=== PATIENT | male | born 1950 | race Caucasian/White ===

== ENCOUNTER 2021-08-03 12:16 | Observation (INO) | payer MEDICARE ==
[~2021-08-03] VITALS: Ht 177.8 cm; Wt 105.8 kg
[2021-08-03] MEDS ORDERED: aspirin 81mg tab.chew PO ONE (12:35)
[2021-08-03 12:50] LABS: BASOPHILS # (AUTO) 0.1 X10'3 (0-0.2); BASOPHILS % (AUTO) 0.9 % (0-1); EOSINOPHILS # (AUTO) 0.1 X10'3 (0-0.9); EOSINOPHILS % (AUTO) 1.2 % (0-6); HEMATOCRIT 42.6 % (42.0-52.0); HEMOGLOBIN 14.3 g/dl (14.0-17.9); LYMPHOCYTES % (AUTO) 17.7 % (21-51); MEAN CORPUSCULAR HEMOGLOBIN 32.8 PG (27.0-31.0); MEAN CORPUSCULAR HGB CONC 33.7 g/dL (33.0-36.5); MEAN CORPUSCULAR VOLUME 97.4 FL (78-98); MONOCYTES # (AUTO) 0.6 X10'3 (0-0.9); MONOCYTES % (AUTO) 9.7 % (2-12); NEUTROPHILS # (AUTO) 4.1 X10'3 (1.8-7.7); NEUTROPHILS % (AUTO) 70.5 % (42-75); PLATELET COUNT 150 X10'3 (140-440); RED BLOOD COUNT 4.37 X10'6 (4.70-6.10); RED CELL DISTRIBUTION WIDTH 13.7 % (11.5-14.5); WHITE BLOOD COUNT 5.9 X10'3 (4.5-11.0)
[2021-08-03 12:54] LABS: ALANINE AMINOTRANSFERASE 31 U/L (12-78); ALBUMIN 3.9 G/DL (3.4-5.0); ALBUMIN/GLOBULIN RATIO 1.1 (1.1-1.5); ALKALINE PHOSPHATASE 85 IU/L (46-116); ANION GAP 10 (8-16); ASPARTATE AMINO TRANSFERASE 29 U/L (10-37); BILIRUBIN,TOTAL 0.8 MG/DL (0.1-1.0); BLOOD UREA NITROGEN 12 MG/DL (7-18); BUN/CREATININE RATIO 11.4 (5.4-32.0); CALCIUM 8.8 MG/DL (8.5-10.1); CHLORIDE 105 MMOL/L (99-107); CREATININE 1.05 MG/DL (0.60-1.10); GLUCOSE 98 MG/DL (70-104); POTASSIUM 4.2 MMOL/L (3.5-5.1); SODIUM 142 MMOL/L (135-145); TOTAL CARBON DIOXIDE 27.5 MMOL/L (24-32); TOTAL PROTEIN 7.3 G/DL (6.4-8.2); eGFR 70 ML/MIN
[2021-08-03 13:42] LABS: D-DIMER 0.28 MG/L FEU (0-0.50)
[2021-08-03] MEDS ORDERED: nitroGLYCERIN 0.4mg SUBLingual tab SL PRN ×2 (15:00)
[2021-08-03] MEDS ORDERED: regadenoson 0.4mg/5ml syringe IV PRN (15:00)
[2021-08-03] MEDS ORDERED: mag hydrox/Alum hydrox/simeth 30ml oral suspension PO PRN (15:00)
[2021-08-03] MEDS ORDERED: ondansetron/PF 4mg/2ml inj IV PRN (15:00)
[2021-08-03] MEDS ORDERED: acetaminophen 325mg tablet PO PRN (15:00)
[2021-08-03] MEDS ORDERED: metoprolol tartrate 1mg/ml inj IV PRN (15:00)
[2021-08-03] MEDS ORDERED: aminophylline 250mg/10ml inj. IV PRN (15:00)
[2021-08-03] MEDS ORDERED: magnesium hydroxide 30ml (MOM) UD suspension PO PRN (15:00)
[2021-08-03] MEDS ORDERED: ALLO300T10 PO (15:03)
[2021-08-03] MEDS ORDERED: ROSU40TA22 PO (15:03)
--- NOTE | 2021-08-03 19:04 | NUR ---
Patient in room ED 6. I have received report from ELMO CUMMINGS and had the opportunity to ask questions and assume patient care.
--- NOTE | 2021-08-03 19:34 | NUR ---
Patient in the room resting and states no norco and morphin
[2021-08-03 19:37] VITALS: BP 156/75
[2021-08-03] MEDS: docusate sod 100mg capsule PO SCH (19:49)
[2021-08-03] MEDS: acetaminophen 325mg tablet PO PRN (19:50)
[2021-08-03 22:53] VITALS: BP 143/72
[2021-08-04] VITALS (9 sets, daily range): BP systolic 133–161; BP diastolic 55–81
[2021-08-04 06:11] LABS: ALBUMIN 3.8 G/DL (3.4-5.0); ANION GAP 6 (8-16); BLOOD UREA NITROGEN 12 MG/DL (7-18); BUN/CREATININE RATIO 11.7 (5.4-32.0); CALCIUM 8.9 MG/DL (8.5-10.1); CHLORIDE 108 MMOL/L (99-107); CHOL/HDL RATIO 2.4 (0.00-4.99); CHOLESTEROL 142 MG/DL (0-200); CREATININE 1.03 MG/DL (0.60-1.10); GLUCOSE 95 MG/DL (70-104); HDL CHOLESTEROL 58 MG/DL (35-60); LDL CHOLESTEROL 58 MG/DL (50-100); POTASSIUM 4.3 MMOL/L (3.5-5.1); SODIUM 142 MMOL/L (135-145); TOTAL CARBON DIOXIDE 28.5 MMOL/L (24-32); TRIGLYCERIDES 213 MG/DL (20-135); eGFR 71 ML/MIN
[2021-08-04 06:22] LABS: BASOPHILS % (AUTO) 0.9 % (0-1); EOSINOPHILS # (AUTO) 0.2 X10'3 (0-0.9); EOSINOPHILS % (AUTO) 3.3 % (0-6); HEMATOCRIT 42.4 % (42.0-52.0); HEMOGLOBIN 14.3 g/dl (14.0-17.9); LYMPHOCYTES # (AUTO) 1.6 X10'3 (1.1-4.8); LYMPHOCYTES % (AUTO) 33.9 % (21-51); MEAN CORPUSCULAR HEMOGLOBIN 33.5 PG (27.0-31.0); MEAN CORPUSCULAR HGB CONC 33.8 g/dL (33.0-36.5); MEAN PLATELET VOLUME 9.3 FL (7.4-10.4); MONOCYTES # (AUTO) 0.6 X10'3 (0-0.9); MONOCYTES % (AUTO) 11.8 % (2-12); NEUTROPHILS # (AUTO) 2.4 X10'3 (1.8-7.7); NEUTROPHILS % (AUTO) 50.1 % (42-75); PLATELET COUNT 136 X10'3 (140-440); RED BLOOD COUNT 4.28 X10'6 (4.70-6.10); RED CELL DISTRIBUTION WIDTH 13.9 % (11.5-14.5); WHITE BLOOD COUNT 4.8 X10'3 (4.5-11.0)
--- NOTE | 2021-08-04 06:35 | NUR ---
Problems reprioritized. Patient report given, questions answered & plan of care reviewed with JOSÉ MIGUEL CUMMINGS.
--- NOTE | 2021-08-04 07:41 | NUR ---
Patient in room PCU 3012. I have received report from Chula CUMMINGS and had the opportunity to ask questions and assume patient care.
[2021-08-04] MEDS ORDERED: atorvastatin 20mg tablet PO SCH (08:00)
[2021-08-04] MEDS ORDERED: allopurinol 300 MG tablet PO SCH (08:00)
[2021-08-04] MEDS: docusate sod 100mg capsule PO SCH (08:00)
--- NOTE | 2021-08-04 09:46 | NUR ---
Returns from stress test.
[2021-08-04] MEDS: acetaminophen 325mg tablet PO PRN (10:00)
--- NOTE | 2021-08-04 11:17 | NUR ---
Family Needs Information in order to consent to the CT
--- NOTE | 2021-08-04 11:19 | NUR ---
Message to Dr. Lopez PAGER ID: [phone] MESSAGE: Please come to speak with the family at the bedside. Pt. needs information about WHY CT ordered/ needed . There may be a financial concern. Thank You Carlyn Abraham RN [phone]
[2021-08-04] MEDS ORDERED: iohexol 350MG/ML 100ml bottle IV ONE (12:30)
--- NOTE | 2021-08-04 14:00 | NUR ---
Discharge Home to care of self and family. Information provided for follow up reference. Stable and withoout chest pain.
== END 2021-08-04 15:20 | disposition home or self-care (01) ==
LOC: ER 12:18 → ED HOLD 15:01 → INTOOBSV 15:01 → PCU 3S 19:15
PROVIDERS: ADMIT Internal Medicine; ATTEND Internal Medicine
DX: R07.89 Other chest pain (principal); R06.02 Shortness of breath; M54.9 Dorsalgia, unspecified; I25.119 Atherosclerotic heart disease of native coronary artery with unspecified angina pectoris; E78.5 Hyperlipidemia, unspecified; M10.9 Gout, unspecified; E78.00 Pure hypercholesterolemia, unspecified; Z79.899 Other long term (current) drug therapy; Z95.5 Presence of coronary angioplasty implant and graft
CPT/HCPCS: 36415; 71045; 71275; 78452; 80048; 80053; 80061; 83880; 84484; 85025; 85379; 87081; 93005; 93017; 99285; A9500; G0378; J2785; Q9967

== ENCOUNTER 2023-07-20 08:03 | Day surgery (SDC) | payer MEDICARE ==
[~2023-07-20] VITALS: Ht 177.8 cm; Wt 102.6 kg
[2023-07-20] VITALS (24 sets, daily range): BP systolic 98–134; BP diastolic 59–99; PULSE 64–112; RESP 11–23; TEMP 98.2; O2SAT 86–98
[~2023-07-20 08:03] MED LIST: ALLO300T10 PO; ROSU40TA22 PO
[2023-07-20] MEDS ORDERED: LOP12.5T PO (08:41)
[2023-07-20] MEDS ORDERED: PROP150T2 PO (08:41)
[2023-07-20] MEDS ORDERED: WARF1TAB83 PO (08:41)
[2023-07-20] MEDS ORDERED: WARF3TAB56 PO (08:41)
[2023-07-20 09:18] LABS: BASOPHILS % (AUTO) 0.8 % (0-1); EOSINOPHILS # (AUTO) 0.1 X10'3 (0-0.9); EOSINOPHILS % (AUTO) 2.3 % (0-6); HEMATOCRIT 41.9 % (42.0-52.0); LYMPHOCYTES % (AUTO) 22.3 % (21-51); MEAN CORPUSCULAR HEMOGLOBIN 34.1 PG (27.0-31.0); MEAN CORPUSCULAR HGB CONC 33.5 g/dL (33.0-36.5); MEAN CORPUSCULAR VOLUME 101.8 FL (78-98); MEAN PLATELET VOLUME 9.3 FL (7.4-10.4); MONOCYTES # (AUTO) 0.5 X10'3 (0-0.9); MONOCYTES % (AUTO) 11.6 % (2-12); NEUTROPHILS # (AUTO) 2.9 X10'3 (1.8-7.7); PLATELET COUNT 116 X10'3 (140-440); RED BLOOD COUNT 4.11 X10'6 (4.70-6.10); RED CELL DISTRIBUTION WIDTH 14.2 % (11.5-14.5); WHITE BLOOD COUNT 4.7 X10'3 (4.5-11.0)
[2023-07-20 09:31] LABS: INR 1.6 INR; PROTHROMBIN TIME 17.1 SECONDS (9.0-12.0)
[2023-07-20] MEDS: normal saline 1000ml 1,000 ML IV SCH (10:14)
[2023-07-20] MEDS: MIDAZolam 1mg/ml 10ml vial IV ONE (10:14)
[2023-07-20] MEDS: fentaNYL/PF 50MCG/1 ML 2ML syringe IV ONE (10:14)
[2023-07-20 10:56] LABS: ANION GAP 7 (8-16); BLOOD UREA NITROGEN 16 MG/DL (7-18); BUN/CREATININE RATIO 13.1 (10.0-20.0); CALCIUM 9.1 MG/DL (8.5-10.1); CHLORIDE 106 MMOL/L (99-107); CREATININE 1.22 MG/DL (0.60-1.10); GLUCOSE 90 MG/DL (70-104); MAGNESIUM 2.4 MG/DL (1.5-2.4); POTASSIUM 4.5 MMOL/L (3.5-5.1); SODIUM 142 MMOL/L (135-145); TOTAL CARBON DIOXIDE 29.3 MMOL/L (24-32); eCRCL 57 ML/MIN; eGFR 58 ML/MIN
== END 2023-07-20 11:20 | disposition home or self-care (01) ==
LOC: SSTAY O 08:03
PROVIDERS: ATTEND Internal Medicine Cardiovascular Disease
DX: I48.91 Unspecified atrial fibrillation (principal); I25.119 Atherosclerotic heart disease of native coronary artery with unspecified angina pectoris; E78.00 Pure hypercholesterolemia, unspecified; N40.0 Benign prostatic hyperplasia without lower urinary tract symptoms; Z95.5 Presence of coronary angioplasty implant and graft; Z79.01 Long term (current) use of anticoagulants; Z79.899 Other long term (current) drug therapy; Z98.890 Other specified postprocedural states; Z98.41 Cataract extraction status, right eye; Z98.42 Cataract extraction status, left eye; Z72.89 Other problems related to lifestyle; Z88.5 Allergy status to narcotic agent; Z88.8 Allergy status to other drugs, medicaments and biological substances; Z82.49 Family history of ischemic heart disease and other diseases of the circulatory system; Z80.0 Family history of malignant neoplasm of digestive organs
CPT/HCPCS: 36415; 80048; 83735; 85025; 85610; 92960; 93005; J2250; J3010; J7030; A4620

== ENCOUNTER 2023-08-10 08:08 | Day surgery (SDC) | payer MEDICARE ==
[2023-08-10] VITALS (17 sets, daily range): BP systolic 97–126; BP diastolic 63–95; PULSE 59–114; RESP 13–23; TEMP 97.7; O2SAT 90–95
[~2023-08-10] VITALS: Ht 177.8 cm; Wt 102.0 kg
[~2023-08-10 08:08] MED LIST changes: +LOP12.5T PO; +PROP150T2 PO; +WARF1TAB83 PO; +WARF3TAB56 PO
[2023-08-10] MEDS ORDERED: MIDAZolam 1mg/ml 10ml vial IV ONE (09:20)
[2023-08-10] MEDS ORDERED: fentaNYL/PF 50MCG/1 ML 2ML syringe IV ONE (09:20)
[2023-08-10 09:30] LABS: BASOPHILS % (AUTO) 0.9 % (0-1); EOSINOPHILS # (AUTO) 0.1 X10'3 (0-0.9); EOSINOPHILS % (AUTO) 1.6 % (0-6); HEMATOCRIT 39.7 % (42.0-52.0); HEMOGLOBIN 13.2 g/dl (14.0-17.9); LYMPHOCYTES # (AUTO) 1.1 X10'3 (1.1-4.8); LYMPHOCYTES % (AUTO) 20.7 % (21-51); MEAN CORPUSCULAR HEMOGLOBIN 33.8 PG (27.0-31.0); MEAN CORPUSCULAR HGB CONC 33.4 g/dL (33.0-36.5); MEAN CORPUSCULAR VOLUME 101.3 FL (78-98); MEAN PLATELET VOLUME 9.6 FL (7.4-10.4); MONOCYTES # (AUTO) 0.6 X10'3 (0-0.9); MONOCYTES % (AUTO) 11.3 % (2-12); NEUTROPHILS # (AUTO) 3.3 X10'3 (1.8-7.7); NEUTROPHILS % (AUTO) 65.5 % (42-75); PLATELET COUNT 126 X10'3 (140-440); RED BLOOD COUNT 3.92 X10'6 (4.70-6.10); RED CELL DISTRIBUTION WIDTH 14.6 % (11.5-14.5); WHITE BLOOD COUNT 5.1 X10'3 (4.5-11.0)
[2023-08-10 09:39] LABS: ALBUMIN 3.7 G/DL (3.4-5.0); ANION GAP 11 (8-16); BLOOD UREA NITROGEN 15 MG/DL (7-18); BUN/CREATININE RATIO 11.4 (10.0-20.0); CHLORIDE 105 MMOL/L (99-107); CREATININE 1.32 MG/DL (0.60-1.10); GLUCOSE 90 MG/DL (70-104); INR 3.1 INR; MAGNESIUM 2.1 MG/DL (1.5-2.4); POTASSIUM 4.2 MMOL/L (3.5-5.1); PROTHROMBIN TIME 30.8 SECONDS (9.0-12.0); SODIUM 141 MMOL/L (135-145); TOTAL CARBON DIOXIDE 25.5 MMOL/L (24-32); eGFR 53 ML/MIN
[2023-08-10] MEDS ORDERED: normal saline 1000ml 1,000 ML IV PRN (10:05)
== END 2023-08-10 11:40 | disposition home or self-care (01) ==
LOC: SSTAY O 08:08
PROVIDERS: ATTEND Internal Medicine Cardiovascular Disease
DX: I48.91 Unspecified atrial fibrillation (principal); I25.10 Atherosclerotic heart disease of native coronary artery without angina pectoris; Z98.890 Other specified postprocedural states; Z79.899 Other long term (current) drug therapy
CPT/HCPCS: 36415; 80048; 83735; 85025; 85610; 92960; 93005; J7030; A4620